=== PATIENT | female | born 2000 | race Caucasian/White ===

== ENCOUNTER 2024-10-30 09:30 | Emergency (ER) | payer OTHER, SELFPAY ==
[2024-10-30 09:46] VITALS: BP 139/74; PULSE 84; RESP 16; TEMP 36.6; O2SAT 100
[2024-10-30 10:35] LABS: Strep Group A RT-PCR NOT DETECTED (Negative)
--- NOTE | 2024-10-30 12:25 | ED_ITS ---
HPI - General Adult General Chief complaint: Unspecified Stated complaint: I think I have strep Time Seen by Provider: 10/30/24 11:52 History of Present Illness HPI narrative: 24-year-old female presented emergency department for evaluation for persistent sore throat. Patient was diagnosed with strep throat in August and due to a penicillin allergy she was not started penicillin. Patient states he does not have a pass an allergy rather has a allergic reaction to the red dye. Patient was treated with azithromycin and then with Keflex and patient states she still having persistent symptoms. Related Data Allergies Allergy/AdvReac Type Severity Reaction Status Date / Time No Known Allergies Allergy Verified 10/30/24 09:31 Review of Systems Review of Systems: All systems reviewed & are unremarkable except as noted in HPI and below Exam Narrative: APPEARANCE: Well appearing, no pain, no distress, well-nourished. HEAD: normocephalic, atraumatic. EYES: PERRLA/EOMI, conjunctivae clear. NOSE: Normal no drainage EARS:TMS clear with good light reflex. THROAT: Tonsillar exudate with no enlarged tonsils NECK: Supple. No adenopathy, no masses. RESPIRATORY: Airway patent, respirations nonlabored. Clear to auscultation bilaterally, no rales, rhonchi, wheezing. CARDIOVASCULAR: Regular rate and rhythm without murmurs rubs or gallops. ABDOMINAL: Soft, nontender, nondistended, normal bowel sounds MUSCULOSKELETAL: Moves all extremities. Strength/ROM intact, No edema, No calf tenderness. NEURO: Alert. Cranial nerves II through XII intact. Grossly intact SKIN: Warm, dry. Normal Color Course Vital Signs Vital signs: Vital Signs Temperature 97.8 F 10/30/24 09:46 Pulse Rate 84 10/30/24 09:46 Respiratory Rate 16 10/30/24 09:46 Blood Pressure 139/74 10/30/24 09:46 Pulse Oximetry 100 10/30/24 09:46 Oxygen Delivery Room Air 10/30/24 09:46 Temperature 97.5 F L 10/30/24 14:07 Pulse Rate 79 10/30/24 14:07 Respiratory Rate 18 10/30/24 14:07 Blood Pressure 106/58 L 10/30/24 14:07 Pulse Oximetry 100 10/30/24 14:07 Oxygen Delivery Room Air 10/30/24 09:46 Medical Decision Making MDM Narrative Medical decision making narrative: [age] old female to the emergency department for evaluation for concern for strep throat. Patient did have positive strep test recently as outpatient and states she was treated with Keflex and does not feel this helped. Patient does still have exudate on her tonsils. Patient requested penicillin injection as opposed to doing any additional antibiotics. Patient was updated the results of the workup patient is comfortable the plan for discharge and close follow-up. Differential Diagnosis Differential Diagnosis: [place], COVID, RSV, influenza, strep throat Vital Signs Vital Signs: Vital Signs Temperature 97.8 F 10/30/24 09:46 Pulse Rate 84 10/30/24 09:46 Respiratory Rate 16 10/30/24 09:46 Blood Pressure 139/74 10/30/24 09:46 Pulse Oximetry 100 10/30/24 09:46 Oxygen Delivery Room Air 10/30/24 09:46 Temperature 97.5 F L 10/30/24 14:07 Pulse Rate 79 10/30/24 14:07 Respiratory Rate 18 10/30/24 14:07 Blood Pressure 106/58 L 10/30/24 14:07 Pulse Oximetry 100 10/30/24 14:07 Oxygen Delivery Room Air 10/30/24 09:46 Lab Data Lab results reviewed: Yes I reviewed the patient's lab results. Labs: Lab Results 10/30/24 10/30/24 Range/Units 09:53 12:10 Monoscreen Negative (Negative) Group A Strep (PCR) Not detected (Negative) Discharge Plan Discharge Clinical Impression: Strep throat Patient Disposition: Home, Self-Care Condition: Stable Instructions: Antibiotic Form, Strep Throat (DC) Additional Instructions: Continue to have close follow-up with your primary care physician. Patient Language: Occitan Follow-up/Referrals: Zackary,Jacey Prater, SOFTWARE DESIGN ENGINEER [Primary Care Provider] -
[2024-10-30 13:10] LABS: Monoscreen Negative (Negative); Negative Monotest Control Negative (Negative); Positive Monotest Control Positive (Positive)
--- OUTSIDE RECORDS SUMMARY | 2024-10-30 13:32 | XMS_ITS | Clinical Summary ---
Author Organization [facility] Address [address] [place] [address] [address] [place] [address] Care Team Providers Care Clinical Research Tech Name Role Phone Unavailable Primary Care Provider Unavailabl e Medications amphetamine-dex troamphetamine (Adderall XR) 10 mg Extended Release 24 hour capsule Take 1 Capsule (10 mg) by mouth daily in the morning. 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
--- OUTSIDE RECORDS SUMMARY | 2024-10-30 13:32 | XMS_ITS | Data Portability ---
Author Organization [facility] [employer], Main Office Address [address] [place] [address] Assessment No assessment recorded. Plan of Treatment Reminders Order Date Submit Date Provider Last Modified By Organization Details Last Modified Time Details Appointments None recorded. Lab None recorded. Referral None recorded. Procedures None recorded. Surgeries None recorded. Imaging None recorded. Medication Orders sum[facility]riptan 100 mg tablet 2024 025 [id number], [address], [place], [id number], 5 09:59:27 bupropion HCl XL 300 mg 24 hr tablet, extended release 2023 024 [facility] #00306, [address], [place], [id number], 4 10:06:03 erythromyci n 5 mg/gram (0.5 %) eye ointment 2023 024 [facility] #86164, [address], [place], [id number], 4 10:08:14 bupropion HCl XL 150 mg 24 hr tablet, extended release 2023 024 [facility] #49423, [address], [place], [id number], 5 09:42:39 Patient TargetsNo targets recorded. Patient InstructionsNo instructions recorded. Reason for Referral None Reported. Problems Name Problem SNOMED Code Status Onset Date Resolution Date Notes Provider Name and Address Organization Details Recorded Time Attention deficit hyperactivi ty disorder 573390732 Active 2023 RIAN SchulzP [address] [facility], [place], [address], [employer] [facility] [employer] [facility] 4 09:53:52 Chalazion of lower eyelid of left eye 3503447766625 02 Active 2023 RIAN SchulzP [address] [facility], [place], [address], [employer] [facility] [employer] [facility] 4 10:06:09 Migraine 02916967 Active 2024 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 Medical Equipment None Reported. Allergies No known drug allergies Medications Name Sig Start Date Stop Date Status Note LastModified by Organization Details LastModified Time sumatriptan 100 mg tablet Take 1 tab at first sign of migraine, can repeat in 2 hrs if needed, do not exceed 3 tabs in 24 hrs active Not Available Not Available No t Available metronidazo le 500 mg tablet 10/16 completed Not Available Not Available Not Available valacyclovi r 500 mg tablet active Not Available Not Available Not Available cephalexin 500 mg capsule 10/16 completed Not Available Not Available Not Available erythromyci n 5 mg/gram (0.5 %) eye ointment APPLY 1 CM RIBBON INTO THE LOWER CONJUNCTI VICKIE SAC(S) IN THE AFFECTED EYE(S) BY OPHTHALMI C ROUTE 3 TIMES PER DAY 2023 active Not Available Not Available Not Avai lable promethazin e 25 mg tablet TAKE 1 TABLET BY MOUTH EVERY 4 TO 6 HOURS NEEDED FOR NAUSEA 06/17 completed Not Available Not Available Not Available ibuprofen 600 mg tablet TAKE 1 TABLET BY MOUTH EVERY 6 HOURS NEEDED FOR PAIN 06/17 completed Not Available Not Available Not Available amoxicillin 875 mg-cristinou m clavulanate 125 mg tablet Take 1 tablet every 12 hours by oral route as directed for 7 days. 2024 active Not Available Not Available Not Avai roge churchithromyci n 500 mg tablet 10/16 completed Not Available Not Available Not Available bupropion HCl XL 300 mg 24 hr tablet, extended release TAKE 1 TABLET BY MOUTH EVERY DAY DIRECTED active Not Available Not Available No t Available bupropion HCl XL 150 mg 24 hr tablet, extended release Take 1 tablet every day by oral route as directed for 30 days. 10/16 completed Not Available Not Available Not Available sumatriptan active Not Available Not A vailable Not Available Vitals Date Recorded Body weight Body mass index (BMI) Body height Body temperature Heart rate Respiratory rate Oxygen saturation Oxygen saturation in Arterial blood by Pulse oximetry Pain severity - 0-10 verbal numeric rating [Score] - Reported Systolic blood pressure Diastolic blood pressure Provider Name and Address Organization Details Last Updated DateTime 4 72613.5 2 g 24.1 kg/m2 177.8 cm 98.2 [degF] 80 /min 20 /min 97 % 97 % 0 130 mm[Hg] 78 mm[Hg] Marbella Lorenzo RN [facility] [employer] 4 09:45:46 Date Recorded Body height Body mass index (BMI) Body weight Body temperature Heart rate Respiratory rate Oxygen saturation Oxygen saturation in Arterial blood by Pulse oximetry Pain severity - 0-10 verbal numeric rating [Score] - Reported Systolic blood pressure Diastolic blood pressure Provider Name and Address Organization Details Last Updated DateTime 4 177.8 cm 22.6 kg/m2 91541.8 g 98 [degF] 82 /min 20 /min 98 % 98 % 0 104 mm[Hg] 70 mm[Hg] Marbella Lorenzo RN [facility] [employer] 4 09:58:24 Date Recorded Body height Body mass index (BMI) Body weight Body temperature Heart rate Respiratory rate Oxygen saturation Oxygen saturation in Arterial blood by Pulse oximetry Pain severity - 0-10 verbal numeric rating [Score] - Reported Systolic blood pressure Diastolic blood pressure Provider Name and Address Organization Details Last Updated DateTime 5 177.8 cm 21.2 kg/m2 23708.8 8 g 97.3 [degF] 89 /min 20 /min 98 % 98 % 0 110 mm[Hg] 70 mm[Hg] Marbella Lorenzo RN [facility] [employer] [facility] 09:45:24 Social History Question Answer Notes LastModified by Organizat ion Details LastModified Time Tobacco Smoking Status Never Smoker Marbella Lorenzo RN [facility], [facility] [employer] [facility] 06/17/2024 09:47:09 Do You Have An Advance Directive? No Information not available 07/23/2024 What Is Your Level Of Caffeine Consumption? Moderate Information not available 06/17/2024 In The 14 Days Before Symptom Onset, Have You Had Close Contact With A Laboratory-confi rmed COVID-19 While That Case Was Ill? No Information not available 06/17/2024 In The 14 Days Before Symptom Onset, Have You Had Close Contact With A Person Who Is Under Investigation For COVID-19 While That Person Was Ill? No Information not available 06/17/2024 Are You Currently Employed? Yes Information not available 06/17/2024 What Type Of Diet Are You Following? REGULAR Information not available 06/17/2024 Which Illicit Or Recreational Drugs Have You Used? Mj Information not available 06/17/2024 What Is Your Occupation? [employer] Information not available 06/17/2024 Have There Been Any Changes To Your Family Or Social Situation? Yes New Job Information not available 06/17/2024 Are There Any Guns Present In Your Home? No Information not available 06/17/2024 How Many Years Have You Used Illicit Or Recreational Drugs? 1 Information not available 06/17/2024 Do You Use Insect Repellent Routinely? No Information not available 06/17/2024 Where Do You Live? Apartment Information not available 06/17/2024 Do You Have A Medical Power Of Equipment Hire Manager? No Information not available 07/23/2024 How Many Children Do You Have? 0 Information not available 06/17/2024 Do You Have Any Pets? No Information not available 06/17/2024 What Is Your Relationship Status? Single Information not available 06/17/2024 Do You Use Your Seat Belt Or Car Seat Routinely? Yes Information not available 06/17/2024 Do You Have Smoke And Carbon Monoxide Detectors In Your Home? Yes Information not available 06/17/2024 Are You Passively Exposed To Smoke? No Information not available 06/17/2024 Are There Any Smokers In Your House? No Information not available 06/17/2024 Do You Participate In Social Media? Yes Information not available 06/17/2024 Do You Feel Stressed (tense, Restless, Nervous, Or Anxious, Or Unable To Sleep At Night)? [id number] Information not available 06/17/2024 Do You Use Any Illicit Or Recreational Drugs? Yes Information not available 06/17/2024 Do You Use Sunscreen Routinely? No Information not available 06/17/2024 Have You Recently Traveled Abroad? No Information not available 07/23/2024 Sex: Unknown Functional Status Question Answer Note LastModified by Organizat ion Details LastModified Time What is your exercise level? Occasional Information not available 06/17/2024 Mental Status None recorded. Family History Relationship Description Onset Age of this Age Resolved Age Notes LastModified by Organization Details LastModified Time Sister Crohn's disease Not available 2024 09:46:07 Sister Endometritis Not availa ble 10/16/2024 09:46:34 Medical History Condition Response ADD/ADHD Y Gynecological History Statement/Question Response Abnormal Pap N Flow Moderate Date of LMP 10/30/2024 Frequency of Cycle (Q days) 28 Menses Monthly Y Duration of Flow (days) 5 Date of Last Pap Smear Age at Menarche 13 Obstetrics History GPAL:G 0 P 0 0 0 0 Past Encounters Encounter ID Performer Location Encounter Start Date Encounter Closed Date Diagnosis/Indication Diagnosis SNOMED-CT Code Diagnosis ICD10 Code Diagnosis Note [id number] LUIS FERNANDO Schulz [facility] [address] [place] [address] 06/17/2024 09:21:53 06/17/2024 10:19:56 Adult health examination 740361576 Z00.00 Needs physical form for work, forgot to bring the form but will bring in later Attention deficit hyperactivity disorder 952141869 F90.9 Chalazion of lower eyelid of left eye 6898047314 52313 H00.15 Is using warm compresses with no relief [id number] RIAN Schulz[address] [address] 07/23/2024 09:49:42 07/23/2024 10:07:58 Attention deficit hyperactivity disorder 071606024 F90.9 [id number] LUIS FERNANDO Schulz [address] [address] 10/16/2024 09:32:51 10/16/2024 10:05:27 Migraine 63267443 G43.909 Samples of Ubrelvy 100 mg and Nurtec 75 mg given in office Health Concerns Section Related Observation LastModified by Organization Detai ls LastModified Time None Recorded Concern Status LastModified by Organization Details LastModified Time None Recorded Advance Directives Directive N: Payers Encounter Date Sequence Insurance Name Policy Number Policy Domínguez Covered Member ID Domínguez Member ID Guarantor Name 06/17/2024 2 [place] [facility] AID Kacy Haroard [id number] Kacy Ezekiel 07/23/2024 2 [place] [facility] [place] Kacy Ezekiel [id number] Kacykeven Falcon 07/23/2024 1 [facility] ON OR AFTER 02/24/21 (MEDICAID REPLACEMENT - HMO) Kacy Haroard [id number] Kacy Haroard 10/16/2024 1 [facility] - DOS ON OR AFTER 21 (MEDICAID REPLACEMENT - HMO) Kacy Haroard [id number] Kacy Falcon Notes Date Note Type Note Provider Name and Address Organization Details Recorded Time 06/17/2024 text/html Kacy Falcon is a 23 year old female patient here today for an annual wellness visit She does have ADHD, diagnosed by psych in 2020. Is not currently taking anything. Took strattera in the past and did not find it effective. 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 She is otherwise healthy. No previous diagnoses. Her sister has Chron's disease. She does have some concerns with mucous in her stool, declines stomach pains or cramping Previously had menstrual migraines but states they have gotten better in the last few months. Flu shot: recommend at [facility] vaccines: x2Tdap: 2017WWE: 2 years ago, normal LUIS FERNANDO Schulz [address], [place], [address], [employer] 06/17/2024 10:10:07 07/23/2024 text/html Kacy Falcon is a 23 year old female patient here today for a medication FU She does have ADHD, diagnosed by psych in 2019. Is not currently taking anything. Took strattera in the past and did not find it effective. Is having difficulty focusing in daily life and having a hard time at work. She has been taking bupropion 150 mg and notes very minimal symptom control. States on the 4th week of taking she notice some improvement but feels she has plateaued. Will increase LUIS FERNANDO Schulz [address], [place], [address], [employer] 07/23/2024 10:06:17 10/16/2024 text/html Kacy Falcon is a 24 year old female patient here today to FU on migraine She has a history of migraine without aura with, was taking sumatriptan, found this effectiveNotes these occur approx once per month, usually associated with periods. LUIS FERNANDO Schulz [address], [place], [address], [employer] 10/16/2024 10:03:03 OBGyn Episode No OBEpisode recorded.
[2024-10-30] MEDS: PENICILLIN G BENZATHINE 1,200,000 UNITS/2 ML SYRINGE 1200000 UNITS IM (13:58)
[2024-10-30 14:07] VITALS: BP 106/58; PULSE 79; RESP 18; TEMP 36.4; O2SAT 100
== END 2024-10-30 14:08 | disposition home or self-care (01) ==
PROVIDERS: Emergency Provider Emergency Medicine
DX: J02.0 Streptococcal pharyngitis (principal)
CPT/HCPCS: 36415; 86308; 87651; 96372; 99283; J0561